=== PATIENT | female | born 1960 | race American Indian/Alaskan Native ===

== ENCOUNTER 2017-02-10 15:25 | Outpatient (CLI) | payer OTHER ==
--- NOTE | 2017-02-11 08:17 | XRay Report ---
Right hip 2 views. History: Pain. Findings: There is narrowing of the joint space with subchondral sclerosis. There is mild subchondral cyst formation along the acetabular margin. There no fractures or other acute findings. Impression: Osteoarthritis.
--- NOTE | 2017-02-11 15:25 | XRay Report ---
Lumbar spine series, 5 views. History: Low back pain. Findings: There is moderate narrowing of the disc spaces at L4-5 and L5-S1. The vertebral body heights are well-maintained. Alignment is normal. There is diffuse osteopenia. There are no pars defects. The pedicles are intact. Impression: Moderate discogenic changes in the lower lumbar spine with no acute findings.
== END 2017-02-10 15:26 | disposition home or self-care (01) ==
LOC: XRAY 15:25
PROVIDERS: ATTEND Surgery Vascular Surgery
DX: M16.11 Unilateral primary osteoarthritis, right hip (principal); M85.88 Other specified disorders of bone density and structure, other site; M25.851 Other specified joint disorders, right hip
CPT/HCPCS: 72110

== ENCOUNTER 2018-05-17 15:40 | Outpatient (CLI) | payer OTHER ==
--- NOTE | 2018-05-17 20:22 | XRay Report ---
FINAL REPORT EXAM: XR SPINE LUMBOSACRAL 4+V HISTORY: OTHER DORSALGIA TECHNIQUE: AP, lateral, bilateral oblique, and coned-down views of the lumbar spine PRIORS: None. FINDINGS: The vertebral body heights and disc spaces are well maintained. The alignment is normal. No evidence for spondylolysis or spondylolisthesis is seen. Pedicles are intact bilaterally at all levels. The paraspinal soft tissues are unremarkable. Surgical clips in the right upper quadrant noted from prior cholecystectomy. IMPRESSION: Normal lumbar spine.
--- NOTE | 2018-05-17 20:24 | XRay Report ---
FINAL REPORT EXAM: XR SPINE THORACIC 2V HISTORY: OTHER DORSALGIA TECHNIQUE: AP and lateral views of the thoracic spine. PRIORS: None. FINDINGS: The vertebral body heights are well maintained. Severe disc space narrowing in the mid thoracic levels is seen. Large osteophytes in the mid and lower thoracic spine is seen. The alignment is normal. Pedicles are intact bilaterally at all levels. The paraspinal soft tissues are unremarkable. Calcified granulomas in the right lung are present. 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
== END 2018-05-17 15:41 | disposition home or self-care (01) ==
LOC: XRAY 15:40
PROVIDERS: ATTEND Internal Medicine
DX: M51.34 Other intervertebral disc degeneration, thoracic region (principal); M25.78 Osteophyte, vertebrae
CPT/HCPCS: 72070; 72110

== ENCOUNTER 2020-11-20 08:57 | Outpatient (CLI) | payer OTHER ==
--- NOTE | 2020-11-20 11:40 | Mammography Report ---
DIGITAL SCREENING MAMMOGRAM WITH CAD, 11/20/2020 CLINICAL INFORMATION / INDICATION: Routine screening mammography. TECHNIQUE: Digital bilateral 2D mammography was obtained in the craniocaudal and mediolateral obliqu e projections. This examination was interpreted with the benefit of Computer-Aided Detection analysis . COMPARISON: 07/17/2015 FINDINGS: Breast Density: There are scattered areas of fibroglandular density. No dominant mass, suspicious calcifications, or architectural distortion in either breast. Postsurgical scar, left breast. Overall, no significant interval change. IMPRESSION: No mammographic evidence of malignancy. Follow up recommendation: Routine yearly BI-RADS Category 2: Benign. A "normal" or negative report should not discourage follow up or biopsy of a clinically significant f inding. A written summary of these findings will be mailed to the patient. The patient will be entered into a mammography reporting system which will generate a reminder letter for the patient's next appointmen t at the appropriate interval. The [employer] recommends yearly mammograms starting at age 40 and continuing as l emmanuel as a woman is in good health. Breast MRI is recommended for women with an approximate 20-25% or greater lifetime risk of breast cancer, including women with a strong family history of breast or ova josue cancer or who have been treated for Hodgkin's disease. Signer Name: Santa Jean MD Signed: 11/20/2020 11:35 AM Workstation Name: [id number]
== END 2020-11-20 08:58 | disposition home or self-care (01) ==
LOC: SPVWC 08:57
PROVIDERS: ATTEND Internal Medicine
DX: Z12.31 Encounter for screening mammogram for malignant neoplasm of breast (principal)
CPT/HCPCS: 77067